=== PATIENT | male | born 1985 | race Caucasian/White ===

== ENCOUNTER → 2024-08-09 14:09 | Outpatient (REF) | payer OTHER, SELFPAY | LOC: HWRAD 14:09 | PROVIDERS: ATTENDING PHYSICIAN Chiropractor; FAMILY PHYSICIAN Nurse Practitioner Family | DX: M54.6 Pain in thoracic spine (principal); M53.2X7 Spinal instabilities, lumbosacral region; R10.2 Pelvic and perineal pain | CPT/HCPCS: 72072; 72110; 72170 ==